=== PATIENT | female | born 1955 | race Caucasian/White ===

== ENCOUNTER 2017-05-02 12:30 | Emergency (ER) | payer SELFPAY ==
[~2017-05-02] VITALS: Ht 160 cm; Wt 67.5 kg
[2017-05-02 12:52] LABS: HEMATOCRIT 45.6 % (36.0-46.0); HEMOGLOBIN 15.5 G/DL (11.9-15.5); MCH 30.7 PG (29.0-34.0); MCV 90.3 FL (83-99); PLATELET COUNT 345 K/uL (156-360); RBC DIS.WIDTH-CV 12.7 % (11.8-14.6); RED BLOOD COUNT 5.05 M/uL (3.80-5.20); WHITE BLOOD COUNT 7.9 K/uL (4.1-10.2)
[2017-05-02 13:05] LABS: APPEARANCE CLEAR ((CLEAR)); BILIRUBIN NEGATIVE; BLOOD NEGATIVE; COLOR YELLOW ((YELLOW)); GLUCOSE (STRIP) NEGATIVE; KETONES NEGATIVE; LEUKOCYTES NEGATIVE; NITRITE NEGATIVE; PROTEIN (STRIP) NEGATIVE; SPECIFIC GRAVITY 1.023 (1.000-1.030); UCUL ADDED? NO; UROBILINOGEN 0.2 MG/DL (0.2-1.0)
[2017-05-02 13:10] LABS: ALBUMIN 4.1 g/dL (3.2-4.8); CHLORIDE 106 mEq/L (99-109); POTASSIUM 3.7 mEq/L (3.7-5.4); SODIUM 140 mEq/L (136-147)
[2017-05-02 13:12] LABS: GLUCOSE 107 mg/dL (70-99); TOTAL PROTEIN 7.3 g/dL (6.4-8.3)
[2017-05-02 13:14] LABS: TOTAL BILIRUBIN 0.8 mg/dL (0.0-1.0)
[2017-05-02 13:16] LABS: ALKALINE PHOSPHATASE 62 IU/L (3-129); CREATININE 0.7 mg/dL (0.6-1.3)
[2017-05-02 13:17] LABS: GFR ESTIMATE (CALCULATED) > 59 mL/min/; UREA NITROGEN (BUN) 14 mg/dL (9-23)
[2017-05-02 13:18] LABS: AST (GOT) 20 IU/L (2-34)
[2017-05-02 13:19] LABS: ALT (GPT) 18 IU/L (3-49)
[2017-05-02] MEDS ORDERED: ZOFRAN4 MG PO (14:54)
[2017-05-02] MEDS ORDERED: BENTYL20 MG PO (15:01)
[2017-05-02 15:14] VITALS: BP 167/110
== END 2017-05-02 15:15 | disposition home or self-care (01) ==
LOC: EME 12:30
DX: R10.31 Right lower quadrant pain (principal); K68.9 Other disorders of retroperitoneum; I25.2 Old myocardial infarction
CPT/HCPCS: 74177; 80053; 81003; 85027; 99281; 99285; J7030